=== PATIENT | female | born 1970 | race African-American/Black ===

== ENCOUNTER → 2017-08-11 | Outpatient (CLI) | payer OTHER ==
[2017-08-11] MEDS: GADOBUTROL 7.5 MMOL/7.5 ML VIAL IV (14:10)
== END | disposition home or self-care (01) ==
LOC: KCIC MRI 13:03
DX: D25.9 Leiomyoma of uterus, unspecified (principal); K82.8 Other specified diseases of gallbladder; D64.9 Anemia, unspecified; Z98.890 Other specified postprocedural states
CPT/HCPCS: 72197; 74183; A9585

== ENCOUNTER → 2017-08-22 | Outpatient (CLI) | payer OTHER | END | disposition home or self-care (01) | LOC: KCIC MAMMO 13:01 | DX: N63.11 Unspecified lump in the right breast, upper outer quadrant (principal); N64.89 Other specified disorders of breast; R92.2 Inconclusive mammogram | CPT/HCPCS: 76641; 77066 ==

== ENCOUNTER → 2018-11-13 | Outpatient (CLI) | payer OTHER ==
--- NOTE | 2018-11-13 15:14 | KCIC ---
Bilateral diagnostic digital mammograms with 3-D tomosynthesis: Reason for examination: Follow-up exam for right breast lump. Comparison is made to previous studies dated 08/22/2017 and 10/21/2015. Bilateral mammograms in CC and oblique projections were obtained with 2-D imaging and 3-D tomosynthesis imaging on a Siemens Inspiration unit and reviewed on the workstation. Interpretation was made with the benefit of CAD. The skin and nipples show no abnormalities. Prominent lymph nodes are seen in the right axilla. The breast parenchyma is extremely dense. (Breast density: Category D.) There is some nodularity in the left breast. Further evaluation with ultrasound will follow. There are no suspicious calcifications. Impression: Prominent right axillary lymph nodes. Small circumscribed nodular densities in the left breast. Ultrasound to follow. Your patient's mammogram demonstrates that she has dense breast tissue (breast density category C or D), which could hide abnormalities, and if she has other risk factors for breast cancer that have been identified, she might benefit from supplemental screening tests that may be suggested by you as her ordering physician. Dense breast tissue, in and of itself, is a relatively common condition. Therefore, this information is not provided to cause undue concern, but rather to raise your awareness and to promote discussion with your patient regarding the presence of other risk factors, in addition to dense breast tissue. Your patient's mammography results will be sent to her. BI-RAD Category 0: Incomplete. Needs additional imaging evaluation. Bilateral breast ultrasound: Comparison is made to previous right breast ultrasound dated 08/22/2017. Bilateral whole breast ultrasound including evaluation of all 4 quadrants and the retroareolar and axillary regions of both breasts was performed. The right breast shows no discrete cystic or solid nodules within the dense fibroglandular tissue. There are however prominent lymph nodes with concentric cortical thickening suggesting reactive adenopathy. The largest measures 3.1 cm in size. The left breast shows a 7.6 mm nodule at the 4:00 position 5 cm from the nipple which is probably fibrocystic. At the 3:30 position 2 cm from the nipple, there 2 abutting nodules consistent with cysts measuring together 8.7 mm in size. No other cystic or solid lesions are seen. There are prominent lymph nodes in the left axilla also suggestion of reactive adenopathy with the largest lymph node measuring approximately 1.8 cm in greatest dimension. IMPRESSION: Prominent lymph nodes in the axilla bilaterally measuring up to 3.1 cm in the right axilla and 1.8 cm in size in the left axilla. Recommend clinical correlation for systemic process. Small cystic and fibrocystic type lesions in the left breast but no suspicious nodules seen in either breast. Recommend 6 month sonographic follow-up. BI-RADS Category 3: Probably Benign. "Our facility is accredited by the [employer] Mammography Program." This patient's information has been entered into a reminder system for the patient to be notified with the results of her examination and a target date for the next mammogram. Electronically signed by: Linda Hernandez MD (11/13/2018 3:11 PM) [id number]
== END | disposition home or self-care (01) ==
LOC: KCIC MAMMO 13:05
PROVIDERS: ATTEND Obstetrics & Gynecology
DX: N63.14 Unspecified lump in the right breast, lower inner quadrant (principal); N60.02 Solitary cyst of left breast
CPT/HCPCS: 76641; 77066; G0279; 77062